=== PATIENT | female | born 1965 | race African-American/Black ===

== ENCOUNTER 2021-11-29 16:27 | Emergency (ER) | payer BC, MEDICAID ==
[~2021-11-29] VITALS: Ht 170.2 cm; Wt 59.0 kg
[2021-11-29] MEDS ORDERED: AMLO5TAB88 PO (16:56)
[2021-11-29] MEDS ORDERED: ALBU6.7H15 INH (18:30)
[2021-11-29] MEDS ORDERED: P50 MT (18:30)
[2021-11-29 18:43] VITALS: BP 115/65
== END 2021-11-29 18:45 | disposition home or self-care (01) ==
LOC: ER 16:27
DX: J40 Bronchitis, not specified as acute or chronic (principal); F17.290 Nicotine dependence, other tobacco product, uncomplicated; I10 Essential (primary) hypertension; Z20.822 Contact with and (suspected) exposure to COVID-19
CPT/HCPCS: 87426; 99283; 99406; C9803